=== PATIENT | male | born 1980 | race Caucasian/White ===

== ENCOUNTER 2022-08-17 19:35 | Emergency (ER) | payer SELFPAY ==
[~2022-08-17] VITALS: Ht 180.3 cm; Wt 75.7 kg
[2022-08-17] MEDS ORDERED: AMOX-430 PO (19:54)
[2022-08-17] MEDS ORDERED: CEFTRIAXONE 1 G VIAL ONE (19:54)
[2022-08-17] MEDS ORDERED: LIDOCAINE HCL 1% 20 ML VIAL ONE (19:54)
[2022-08-17] MEDS ORDERED: AMOXICILLIN-CLAVUL 875-125MG TABLET ONE (19:55)
[2022-08-17] MEDS ORDERED: OXYCODONE/APAP 5-325 MG TABLET PO ONE (20:00)
[2022-08-17] MEDS ORDERED: CEFTRIAXONE 1 G VIAL IM ONE (20:00)
[2022-08-17] MEDS ORDERED: OXYCODONE/APAP 5-325 MG TABLET ONE (20:01)
--- NOTE | 2022-08-17 20:13 | NUR ---
Patient does not wish to proceed with medical care recommended by Dr. Millna. Patient given information related to possible complications, up to and including , which could occur as a result of leaving the hospital at this time. Patient verbalizes understanding of risks involved due to leaving against medical advice. Patient has signed AMA form. Patient left with girlfriend with steady gait.
[2022-08-17] MEDS ORDERED: AMOXICILLIN-CLAVUL 875-125MG TABLET PO ONE (20:15)
== END 2022-08-17 20:15 | disposition left against medical advice (07) ==
LOC: ER 19:35
DX: S01.551A Open bite of lip, initial encounter (principal); W54.0XXA Bitten by dog, initial encounter; Y92.89 Other specified places as the place of occurrence of the external cause; Z53.29 Procedure and treatment not carried out because of patient's decision for other reasons
CPT/HCPCS: 99283; 96372; J0696; J3490; A4663